=== PATIENT | female | born 1970 | race Caucasian/White ===

== ENCOUNTER 2016-06-25 07:49 | Day surgery (SDC) | payer BC, OTHER ==
[2016-06-20 11:59] VITALS: BMI 28.1
[~2016-06-25 07:49] MED LIST: DEXAMETHASONE SOD PHOSPHATE 10 MG/ML 1 ML VIAL IV ONE; HYDROmorphone 1 MG/ML 1 ML SYRINGE IVP PRN; LACTATED RINGERS 1,000 ML IV SCH; MIDAZOLAM 2 MG/2 ML VIAL IV PRN; MOXIFLOXACIN HCL 0.5% DROPS 3 ML BTL OP ONE; ONDANSETRON 4 MG/2 ML VIAL IVP ONE; TETRACAINE 0.5% OPHTH (PF) DROPS 4 ML BTL OP ONE; TIMOLOL 0.5% OPHTH SOLN (PF) 0.2 ML DROPERETTE OP ONE
[2016-06-25 09:35] VITALS: RESP 16; TEMP 97.8
[2016-06-25] MEDS: CYCLOPENTOLATE 1% OPHTH SOLN 2 ML BTL OP ONE ×3 (09:45→09:56)
[2016-06-25] MEDS ORDERED: LIDOCAINE 1% 20 ML VIAL (10MG/ML) FOR IV START INTRADERMA ONE (09:47)
[2016-06-25] MEDS: PHENYLEPHRINE 2.5% OPHTH DRP 2ML OP NR ×3 (09:49→09:59)
[2016-06-25] MEDS ORDERED: fentaNYL (PF) 50 MCG/ML 2 ML AMP ONE (10:56)
[2016-06-25] MEDS ORDERED: MIDAZOLAM 2 MG/2 ML VIAL ONE (10:56)
[2016-06-25] MEDS ORDERED: HYALURONATE SODIUM INTRAOCULAR 1 EACH SYRINGE (12MG/ML) INTRAOCULA ONE ×2 (10:58)
[2016-06-25] MEDS ORDERED: LIDOCAINE 1% (PF) 10MG/ML VIAL SQ ONE (10:59)
[2016-06-25] MEDS ORDERED: FLUORESCEIN STRIPS 1 MG STRIP MISCELLANE ONE (10:59)
[2016-06-25] MEDS ORDERED: BALANCED SALT IRRIG SOLN COMB2 15 ML IRRIG.SOLN INTRAOCULA ONE (10:59)
[2016-06-25] MEDS ORDERED: EPINEPHrine (PF) 0.3 ML in BALANCED SALT IRRIG SOLN COMB2 500 ML IRRIGATION ONE (11:02)
[2016-06-25] MEDS ORDERED: ATROPINE OPHTH SOLN 1% 5ML BTL LEFT EYE ONE (11:21)
--- NOTE | 2016-06-25 11:43 | P.OP ---
Date of Procedure: 06/25/16 Preoperative Diagnosis: NS & PSC & reg astigmatism Postoperative Diagnosis: same Procedure(s) Performed: PIOL, OS Implants: [id number] 25.00 x 1.25 Anesthesia: MAC Surgeon: Antoine Garcia Pathology: none sent Condition: stable Disposition: same day Indications for Procedure: blurry vision Operative Findings: No comlpications
[2016-06-25 12:13] VITALS: BP 122/82; PULSE 74
--- NOTE | 2016-06-25 21:53 | OP ---
DATE OF SERVICE: June 25, 2016 SURGEON: YAEL MALHOTRA MD TRAFFIC RATE COMPUTER: PREOPERATIVE DIAGNOSES: 1. Nuclear sclerosis. 2. Posterior subcapsular cataract and 3. Regular astigmatism. POSTOPERATIVE DIAGNOSES: 1. Nuclear sclerosis. 2. Posterior subcapsular cataract and 3. Regular astigmatism. OPERATION: Phacoemulsification of cataract and intraocular lens implant of the left eye. ANESTHESIA: Topical. ESTIMATED BLOOD LOSS: None. SPECIMENS REMOVED: None. COMPLICATIONS: OPERATIVE FINDINGS: DESCRIPTION OF PROCEDURE: After obtaining the appropriate consent, the patient was brought to the operating room. There she was asked to sit upright and the axis of 0 and 180 degrees was identified and marked with a gentian lashanda marker on her corneal limbus. She was then placed in the proper supine position under cardiac monitoring, then prepped and draped in the usual sterile manner. She was approached from her left temporal side. Using previously acquired corneal topography information, the axis of 99 degrees was identified and marked with a Nichamin corneal marking set. Following the placement of the axis dionna, the center of the cornea was marked with a 5.5 mm Ashish ring also inked in gentian lashanda. At the 5 o'clock position, a 1.1 mm stab blade was used to create a paracentesis port. Through this opening, 1% Xylocaine MPF 50-50 mix with balance salt solution was injected into the anterior chamber. This was followed by stabilization of the anterior chamber with Amvisc. At the 3 o'clock position, a 2.75 mm jackie keratome was used to create a self-sealing corneal flap incision in a Langerman fashion. Through this opening, a cystotome was introduced to begin a continuous tear capsulorrhexis. This was completed using the Utrata forceps. Care was taken to ensure that the size of the rhexis was at least the 5.5 mm previously marked on the patient's cornea. Hydrodissection and hydrodelineation of the lens was accomplished with balanced salt solution. Phacoemulsification of the lens utilizing phaco chop was accomplished in 6.47 seconds at 6% power. Additional Xylocaine MPF was instilled into the anterior chamber. This was followed by removal of the remaining cortex as well as careful polishing of the posterior capsule in the capsule vacuum mode. Additional Amvisc was then used to stabilize the capsular bag, and using the ( Nancy ) Radu capsule polishing instruments, care was taken to remove all remaining visible cortical material as well as possible all the way out to the equator of the capsular bag. Additional Amvisc was then used to deepen the anterior chamber. The jackie keratome was used to slightly enlarge the internal opening of the temporal incision and a [employer] Trulign line model BL 1 UT 25 diopter, 1.25 diopter cylinder correction intraocular lens was then placed into the capsular bag without difficulty. The lens was rotated at least 180 degrees to ensure there was no residual cortical material which may interfere with placement of the lens. The irrigation/aspiration instrument was brought back into the posterior chamber and removal of all the remaining viscoelastic from in and around the intraocular lens as well as the anterior chamber was performed. The lens was then aligned at the 99 degrees consistent with the dionna on the patient's corneal limbus. The eye was brought then to normal intraocular pressure through the paracentesis port with balanced salt solution. Then to ensure chamber stability and maintain proper placement of the intraocular lens, the paracentesis as well as the temporal incision were coated in ReSure. Once the tissue glue had set in place, the eye was confirmed watertight using a fluorescein strip. The patient then received 2 drops of 0.5% timolol, 2 drops of Vigamox and 2 drops of 1% atropine. She was lightly patched and shielded in the usual manner. There were no complications from the procedure. She tolerated the procedure well and was returned to outpatient recovery in good condition. MICHELLE
== END 2016-06-25 12:34 | disposition home or self-care (01) ==
LOC: OR 07:49
PROVIDERS: ATTEND Ophthalmology
DX: H52.223 Regular astigmatism, bilateral (principal); H25.042 Posterior subcapsular polar age-related cataract, left eye; H25.12 Age-related nuclear cataract, left eye; H35.413 Lattice degeneration of retina, bilateral; H52.13 Myopia, bilateral; Z96.1 Presence of intraocular lens; I10 Essential (primary) hypertension; K21.9 Gastro-esophageal reflux disease without esophagitis; Z88.5 Allergy status to narcotic agent; Z79.899 Other long term (current) drug therapy
CPT/HCPCS: 66984; V2632; J2250; J0171; J3010; J2001; 99152; 99153

== ENCOUNTER 2016-07-09 07:03 | Day surgery (SDC) | payer BC, OTHER ==
[2016-07-04 12:48] VITALS: BMI 27.3
[~2016-07-09 07:03] MED LIST changes: -HYDROmorphone 1 MG/ML 1 ML SYRINGE IVP PRN; +LIDOCAINE 1% 20 ML VIAL (10MG/ML) FOR IV START INTRADERMA PRN; -MIDAZOLAM 2 MG/2 ML VIAL IV PRN; +SCOPOLAMINE 1.5MG/72HR PATCH TRANSDERM ONE
[2016-07-09] MEDS: CYCLOPENTOLATE 1% OPHTH SOLN 2 ML BTL OP ONE ×3 (07:48→08:02)
[2016-07-09] MEDS: PHENYLEPHRINE 2.5% OPHTH DRP 2ML OP NR ×3 (07:51→08:05)
[2016-07-09 07:54] VITALS: RESP 16; TEMP 97.9
[2016-07-09] MEDS ORDERED: MIDAZOLAM 2 MG/2 ML VIAL ONE (08:11)
[2016-07-09] MEDS ORDERED: PROPOFOL 10 MG/ML 20 ML VIAL IV ONE (08:11)
[2016-07-09] MEDS ORDERED: fentaNYL (PF) 50 MCG/ML 2 ML AMP ONE (08:11)
[2016-07-09] MEDS ORDERED: HYALURONATE SODIUM INTRAOCULAR 1 EACH SYRINGE (12MG/ML) INTRAOCULA ONE (08:23)
[2016-07-09] MEDS ORDERED: BALANCED SALT IRRIG SOLN COMB2 15 ML IRRIG.SOLN INTRAOCULA ONE (08:24)
[2016-07-09] MEDS ORDERED: EPINEPHrine (PF) 0.3 ML in BALANCED SALT IRRIG SOLN COMB2 500 ML IRRIGATION ONE (08:24)
[2016-07-09] MEDS ORDERED: LIDOCAINE 1% (PF) 10MG/ML VIAL MISCELLANE ONE (08:24)
[2016-07-09] MEDS ORDERED: CHONDROITIN-SOD HYALURONATE 1 EACH SYRINGE (0.75 ML) INTRAOCULA ONE (08:30)
[2016-07-09] MEDS ORDERED: FLUORESCEIN STRIPS 1 MG STRIP LEFT EYE ONE (09:00)
--- NOTE | 2016-07-09 09:06 | P.OP ---
Date of Procedure: 07/09/16 Preoperative Diagnosis: pseudophakic lens dislocation Postoperative Diagnosis: same Procedure(s) Performed: reposition of IOL and capsular tension ring implantation, OS Implants: CTR [id number] Anesthesia: MAC Surgeon: Antoine Garcia Estimated Blood Loss (ml): 0 Pathology: none sent Condition: stable Disposition: same day Indications for Procedure: blurry vision Operative Findings: lens reposition IOL and persistent vault, attempted top place 13 mm CTR which was placed in sulcus, not bag as intended. Unable to be retrieved.
[2016-07-09 09:30] VITALS: BP 120/78; PULSE 75
[2016-07-09] MEDS ORDERED: ACETAMINOPHEN TAB 325 MG TAB PO ONE (09:55)
--- NOTE | 2016-07-09 23:07 | OP ---
DATE OF SERVICE: 07/09/2016 SURGEON: YAEL MALHOTRA MD INTERNATIONAL LOGISTICS COORDINATOR: PREOPERATIVE DIAGNOSIS: Vaulted Crystal lens and myopic shift of the left eye. POSTOPERATIVE DIAGNOSIS: Vaulted Crystal lens and myopic shift of the left eye. OPERATION: Reposition of Crystal lens intraocular lens in the left eye. ANESTHESIA: Topical. ESTIMATED BLOOD LOSS: None. SPECIMENS REMOVED: None. COMPLICATIONS: OPERATIVE FINDINGS: NARRATIVE: After obtaining the appropriate consent, the patient was brought to the operating room. There she was placed under cardiac monitoring, prepped and draped in the usual sterile manner. She was approached from her left temporal side. Using a gentian lashanda marker, the placement of the intraocular lens in her eye was noted and marked. At the 5:00 position a 1.1 mm stab blade was used to create a paracentesis port. Through this opening, 1% Xylocaine MPF 50-50 mix with balance salt solution was injected into the anterior chamber. This was followed by instillation of Amvisc to stabilize the anterior chamber. At the 3:00 position a 2.5 mm keratome was used to reopen the temporal incision. Using a Sinskey hook, the intraocular lens was tamponade towards the posterior capsule however persisted in staying in the more anteriorly displaced position. As is typically done when lens of this sort demonstrate this type of behavior, a capsular tension ring is inserted to maintain the diameter of the equator of the capsular bag. A 13 mm capsular tension ring model STBL 13 US was therefore chosen and was inserted into the eye. Initially the belief was that the capsular tension ring was going into the equator of the capsular bag without any significant difficulties. There were noted a couple of unusual behaviors as the capsular tension ring was being inserted, however, when the trailing eyelid was released it was immediately noted that the iris became tented at the 2:00 position, as the trailing eyelid was not to be seen because of its position underneath the temporal incision, it required using a gonioprism to better identify the trailing eyelid. Closer examination and review of the video while awaiting for the gonioprism demonstrated that the capsular tension ring was not within the capsular bag but more likely within the ciliary sulcus. Once the eyelet was necessarily identified, the patient was given some propofol to make her more comfortable and the eyelid of the capsular tension ring was captured and attempts to remove the capsular tension ring; however, from its misplaced position was not able to be accomplished. The trailing eyelid released from the Sinskey hook which was used to hold the eyelid in an attempt using Zavala forceps to capture and remove the capsular tension ring from within the eye was not able to be accomplished and the trailing eyelet retracted underneath the iris, leaving the pupil round. Because of the difficulty identifying where the capsular tension ring was and concern of possible further injury to the eye, it was decided to leave the capsular tension ring where it currently resides and seek outside advice on a method for retrieval. In the meantime, viscoelastic was removed from within the eye. The eye was brought to normal intraocular pressure through the paracentesis port with balanced salt solution. The incisions were coated with ReSure and she then received 2 drops of 0.5% timolol followed by 2 drops of Vigamox, was lightly patched and shielded in the usual manner. There were no additional difficulties encountered during the surgery. She tolerated the procedure well and was returned to outpatient recovery in good condition.
== END 2016-07-09 10:28 | disposition home or self-care (01) ==
LOC: OR 07:03
PROVIDERS: ATTEND Ophthalmology
DX: T85.22XA Displacement of intraocular lens, initial encounter (principal); I10 Essential (primary) hypertension; H35.413 Lattice degeneration of retina, bilateral; H52.13 Myopia, bilateral; H52.223 Regular astigmatism, bilateral; Z88.5 Allergy status to narcotic agent; Z79.899 Other long term (current) drug therapy; Y77.2 Prosthetic and other implants, materials and accessory ophthalmic devices associated with adverse incidents
CPT/HCPCS: 66825; L8610; J2250; J0171; J3010; J2001; J2704; 99152; 99153

== ENCOUNTER 2019-08-17 21:07 | Emergency (ER) | payer BC, OTHER ==
[2019-08-17 21:27] VITALS: RESP 18; TEMP 98.3
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
--- NOTE | 2019-08-17 22:15 | XR ---
EXAMINATION TYPE: XR pelvis AP view DATE OF EXAM: 08/17/2019 COMPARISON: NONE HISTORY: Pain TECHNIQUE: Single view FINDINGS: Pelvic ring is intact. Proximal femurs and hip joints are intact. Sacroiliac joints appear normal. IMPRESSION: Normal pelvis.
[2019-08-17 22:51] VITALS: BP 122/81; PULSE 81
== END 2019-08-17 22:51 | disposition home or self-care (01) ==
LOC: EC 21:07
DX: M47.812 Spondylosis without myelopathy or radiculopathy, cervical region (principal); R51 Headache; I10 Essential (primary) hypertension; Z88.5 Allergy status to narcotic agent; Z79.899 Other long term (current) drug therapy; Z98.42 Cataract extraction status, left eye; Z98.41 Cataract extraction status, right eye; Z85.828 Personal history of other malignant neoplasm of skin; Z80.41 Family history of malignant neoplasm of ovary; V49.50XA Passenger injured in collision with unspecified motor vehicles in traffic accident, initial encounter; Y92.411 Interstate highway as the place of occurrence of the external cause
CPT/HCPCS: 70450; 71046; 72125; 72170; 99284